=== PATIENT | male | born 1980 | race Two or more races ===

== ENCOUNTER 2018-06-11 11:07 | Inpatient (IN) | payer MEDICAID, OTHER ==
[~2018-06-11] VITALS: Ht 175.3 cm; Wt 87.3 kg
[2018-06-11 11:51] LABS: Basophils # (auto) 0.1 uL; Basophils % (auto) 0.9 % (0.0-2.0); Eosinophils # (auto) 0.3 uL; Eosinophils % (auto) 3.8 % (0.0-7.0); Hemoglobin 15.1 g/dL (13.5-17.5); Lymphocytes # (auto) 2.6 uL; Lymphocytes % (auto) 34.6 % (10.0-50.0); Mean Corpuscular Hemoglobin 28.5 pg (28.0-32.0); Mean Corpuscular Hgb Conc. 32.8 g/dL (32.0-36.0); Mean Corpuscular Volume 86.9 fL (80.0-100.0); Monocytes # (auto) 0.5 uL; Monocytes % (auto) 6.6 % (0.0-12.0); Neutrophils # (auto) 4.1 uL; Neutrophils % (auto) 54.1 % (37.0-80.0); Nucleated Red Blood Cells % 0.2 %; Platelet Count (auto) 238 10^3/uL (140-450); Red Cell Distribution Width 14.6 % (11.8-14.3); White Blood Cell 7.7 10^3/uL (4.4-10.8)
[2018-06-11 12:59] LABS: Potassium 3.9 mmol/L (3.5-5.1)
[2018-06-11 13:22] LABS: Albumin 3.4 g/dL (3.4-5.0); BUN/Creatinine Ratio 14.9; Bilirubin, Total 0.3 mg/dL (0.2-1.0); Total Protein 6.9 g/dL (6.4-8.2)
[2018-06-11] MEDS ORDERED: MORPHINE SULFATE 4 MG/ML SYR/VIAL IV ONE (13:30)
[2018-06-11] MEDS ORDERED: metroNIDAZOLE 500MG/100ML 100 ML IV ONE (13:30)
[2018-06-11] MEDS ORDERED: ONDANSETRON HCL 4 MG/2 ML VIAL IV ONE (13:30)
[2018-06-11] MEDS ORDERED: PIPERACILLIN-TAZOB 3.375GM 100 ML IV ONE (13:30)
[2018-06-11 16:07] LABS: Urine Bacteria NONE SEEN /hpf (None Seen); Urine Blood Negative /uL (Negative); Urine Specific Gravity 1.013 (1.001-1.035); Urine WBC <1 /hpf (0 - 3)
[2018-06-11 16:13] LABS: Alcohol, Urine < 3.0 mg/dL (0-5); Amphetamine Screen, Urine NEGATIVE (NEGATIVE); Barbiturate Scree,Urine NEGATIVE (NEGATIVE); Benzodiazephine Screen, Urine NEGATIVE (NEGATIVE); Cannabinoid Screen, Urine POSITIVE (NEGATIVE); Cocaine Screen, Urine NEGATIVE (NEGATIVE); Opiate Scree,Urine NEGATIVE (NEGATIVE); Phencyclidine Screen, Urine NEGATIVE (NEGATIVE)
[2018-06-11] MEDS: SODIUM CHLORIDE 0.9% 1,000 ML IV SCH (16:42)
[2018-06-11] MEDS ORDERED: traMADol HCL 50 MG TAB PO PRN (16:45)
[2018-06-11] MEDS ORDERED: NITROGLYCERIN 0.4 MG SL TAB SL PRN (16:45)
[2018-06-11] MEDS ORDERED: cefTRIAXone 1GM/50ML D5W 50 ML IV ONE (16:45)
[2018-06-11] MEDS ORDERED: LORazepam 0.5 MG TAB PO PRN (16:45)
[2018-06-11] MEDS ORDERED: PANTOPRAZOLE 40 MG/10 ML VIAL IV ONE (16:45)
[2018-06-11] MEDS ORDERED: PROMETHAZINE HCL 25 MG/ML 1ML IV PRN (16:45)
[2018-06-11] MEDS ORDERED: TEMAZEPAM 15 MG CAP PO PRN (16:45)
[2018-06-11] MEDS ORDERED: MORPHINE SULF INJ 2 MG/ML SYRINGE 1ML IV PRN (16:45)
[2018-06-11] MEDS ORDERED: ACETAMINOPHEN 500 MG TAB PO PRN (16:45)
[2018-06-11 17:06] LABS: CRP High Sensitivity 0.06 mg/dL (< 0.3)
--- NOTE | 2018-06-11 18:37 | NUR ---
Telemetry admit from ER SANDRITA VICKERS admitted to Telemetry unit RM 251A. Patient oriented to YONIS Moura RN, unit, room, bed, and unit policies regarding patient care and visiting hours. Patient now on continuous telemetry monitoring, tele box # 9 and telemetry reading on arrival to unit is Sinus Rhythm, [id number]. Patient is on room air. Patient encouraged to call if they need something. All questions and concerns addressed, patient verbalized understanding. IV Rocephin which was started in the ER continued.
--- NOTE | 2018-06-11 19:10 | NUR ---
Closing Note Patient is resting in bed, call light within reach and family at bedside. Care endorsed to night RN. Also informed night RN regarding Flagyl IV scheduled at 1800 to be given as IV Rocephin is still running at this time.
--- NOTE | 2018-06-11 20:00 | NUR ---
ASSUMED CARE, PT. AWAKE, NO C/O PAIN, NO SOB.
[2018-06-11 21:30] VITALS: BP 120/63
[2018-06-11] MEDS: MORPHINE SULFATE 4 MG/ML SYR/VIAL IV PRN (21:38)
[2018-06-11] MEDS: PANTOPRAZOLE 40 MG/10 ML VIAL IV SCH (21:38)
[2018-06-11] MEDS: metroNIDAZOLE 500MG/100ML 100 ML IV SCH (23:31)
[2018-06-12 01:57] LABS: Hematocrit 44.2 % (41.0-53.0); Hemoglobin 14.8 g/dL (13.5-17.5)
[2018-06-12] MEDS: MORPHINE SULFATE 4 MG/ML SYR/VIAL IV PRN (02:32)
[2018-06-12] MEDS: SODIUM CHLORIDE 0.9% 1,000 ML IV SCH ×3 (02:42→22:42)
[2018-06-12 04:30] VITALS: BP 109/64
[2018-06-12] MEDS: metroNIDAZOLE 500MG/100ML 100 ML IV SCH ×3 (05:31→17:54)
[2018-06-12 06:20] LABS: Hematocrit 45.2 % (41.0-53.0); Hemoglobin 15.2 g/dL (13.5-17.5)
[2018-06-12 06:27] LABS: Albumin 3.3 g/dL (3.4-5.0); BUN/Creatinine Ratio 11.6; Calcium 7.9 mg/dL (8.5-10.1); Potassium 3.8 mmol/L (3.5-5.1)
[2018-06-12 06:30] LABS: Bilirubin, Total 0.4 mg/dL (0.2-1.0); Total Protein 6.7 g/dL (6.4-8.2)
--- NOTE | 2018-06-12 08:00 | NUR ---
ASSESSMENT NOTE PT IS LAERT ORIENTED X4, RESTING IN BED COMFORTABLY, NO DISTRESS NOTED, DENIES ANY ABDOMEN PAIN 0/10, SELF REPOSITION NEEDED, ORIENTED TO CALL LIGHT- WITHIN REACH, PT'S AT BED SIDE
[2018-06-12 09:07] VITALS: BP 109/65
[2018-06-12] MEDS: PANTOPRAZOLE 40 MG/10 ML VIAL IV SCH ×2 (09:22→21:41)
[2018-06-12] MEDS: cefTRIAXone 1GM/50ML D5W 50 ML IV SCH (09:23)
[2018-06-12] MEDS ORDERED: ENOXAPARIN SOD 40 MG/0.4 ML SYRINGE SC SCH (10:00)
[2018-06-12] MEDS ORDERED: PANTOPRAZOLE 40 MG/10 ML VIAL IV SCH (10:00)
[2018-06-12 11:30] VITALS: BP 132/81
[2018-06-12 14:10] LABS: Hematocrit 45.6 % (41.0-53.0)
--- NOTE | 2018-06-12 15:42 | NUR ---
PAGE DR Artie GAR PT WOULD LIKE TO EAT.
--- NOTE | 2018-06-12 15:55 | NUR ---
DR GILLETTE AT BED SIDE FOLLOWING UP ON PT, INFORM PT THAT HE CAN START ON CLEAR LIQUID NOW AND FOR DINNER FULL LIQUID, PT'S ASKED DR GILLETTE IF HER CAN GO HOME TODAY, DR GILLETTE ADVICE HER IT PREFER TO WAIT ONE MORE DAY,BECAUSE THE LAIPASE LEVEL WAS IN 500'S.
--- NOTE | 2018-06-12 16:00 | NUR ---
CLEAR LIQUID PT TOLERATED CLEAR LIQUID WELL, CONTINUE MONITORING.
[2018-06-12 17:10] VITALS: BP 134/86
--- NOTE | 2018-06-12 19:20 | NUR ---
Opening Shift Note Assumed care of patient, awake and alert with at bedside. No S/S of distress/SOB or pain. Instructed on POC and to call for assistance PRN, will continue to monitor for changes Q1hr and PRN.
[2018-06-12 21:30] VITALS: BP 133/72
[2018-06-13] MEDS: metroNIDAZOLE 500MG/100ML 100 ML IV SCH ×3 (00:13→11:42)
[2018-06-13] MEDS: SODIUM CHLORIDE 0.9% 1,000 ML IV SCH (00:14)
[2018-06-13 05:00] VITALS: BP 102/66
[2018-06-13 08:00] VITALS: BP 108/54
--- NOTE | 2018-06-13 08:00 | NUR ---
ASSESSMENT NOTE PT IS ALERT ORIENTED X4, RESTING IN BED COMFORTABLY, NO DISTRESS NOTED, DENIES ANY ABDOMEN PAIN 0/10, SELF REPOSITION NEEDED, ORIENTED TO CALL LIGHT- WITHIN REACH, PT'S AT BED SIDE.
--- NOTE | 2018-06-13 09:00 | NUR ---
BREAKFAST PT TOLERATED DIET WELL
[2018-06-13] MEDS: PANTOPRAZOLE 40 MG/10 ML VIAL IV SCH (09:24)
[2018-06-13] MEDS: cefTRIAXone 1GM/50ML D5W 50 ML IV SCH (09:24)
[2018-06-13 12:00] VITALS: BP 138/76
--- NOTE | 2018-06-13 14:34 | NUR ---
DR HANK ROBERTSON CALLED, PT'S UPDATE GIVEN TO HER, SAID PT CAN GO HOME AND FOLLOW UP OUTPATIENT.
[2018-06-13 16:00] VITALS: BP 131/76
--- NOTE | 2018-06-13 17:20 | NUR ---
DR GILLETTE AT BED SIDE FOLLOWING UP ON PT WITH DISCHARGE HOME INSTRUCTION, PT VERBALIS UNDERSTANDING
--- NOTE | 2018-06-13 18:50 | NUR ---
ALL DISCHARGE INSTRUCTION GIVEN TO PT, PT VERBALIS UNDERSTANDING, PT CONTINUE EATING DINNER, TOLERATED WELL
== END 2018-06-13 18:55 | disposition home or self-care (01) | DRG 241 ==
LOC: ER 11:11 → TELE-EAST 16:42
PROVIDERS: ADMIT Internal Medicine; ATTEND Internal Medicine
DX: K29.80 Duodenitis without bleeding (principal); K85.20 Alcohol induced acute pancreatitis without necrosis or infection; F12.90 Cannabis use, unspecified, uncomplicated; E66.3 Overweight; N20.0 Calculus of kidney; Z82.49 Family history of ischemic heart disease and other diseases of the circulatory system; Z83.3 Family history of diabetes mellitus; Z68.28 Body mass index [BMI] 28.0-28.9, adult
CPT/HCPCS: 36415; 71045; 74176; 80053; 80307; 81001; 82150; 82962; 83605; 83690; 85014; 85018; 85025; 85045; 85652; 86141; 87040; 96365; 96375; C9113; G0378; J0696; J2405; J2543; J3490

== ENCOUNTER 2018-10-07 11:49 | Emergency (ER) | payer MEDICAID ==
[2018-10-07 12:36] LABS: Basophils # (auto) 0.1 uL; Basophils % (auto) 0.9 % (0.0-2.0); Eosinophils # (auto) 0.3 uL; Eosinophils % (auto) 4.4 % (0.0-7.0); Hematocrit 45.2 % (41.0-53.0); Hemoglobin 15.2 g/dL (13.5-17.5); Lymphocytes # (auto) 2.2 uL; Lymphocytes % (auto) 30.6 % (10.0-50.0); Mean Corpuscular Hemoglobin 29.3 pg (28.0-32.0); Mean Corpuscular Hgb Conc. 33.6 g/dL (32.0-36.0); Mean Corpuscular Volume 87.3 fL (80.0-100.0); Monocytes # (auto) 0.4 uL; Monocytes % (auto) 5.8 % (0.0-12.0); Neutrophils # (auto) 4.1 uL; Neutrophils % (auto) 58.3 % (37.0-80.0); Platelet Count (auto) 252 10^3/uL (140-450); Red Blood Cells 5.18 10^6/uL (4.5-5.90); Red Cell Distribution Width 14.2 % (11.8-14.3); White Blood Cell 7.1 10^3/uL (4.4-10.8)
[2018-10-07 12:46] LABS: Alanine Aminotransferase 31 U/L (16-61); Albumin 3.6 g/dL (3.4-5.0); Anion Gap 9 (5-15); Aspartate Aminotransferase 16 U/L (15-37); Blood Urea Nitrogen 13 mg/dL (7-18); Calcium 8.4 mg/dL (8.5-10.1); Carbon Dioxide 25 mmol/L (21-32); Chloride 110 mmol/L (98-107); GFR African American 100 mL/min; GFR Non-African American 83 mL/min; Glucose 117 mg/dL (74-106); Magnesium 2.1 mg/dL (1.6-2.6); Potassium 4.1 mmol/L (3.5-5.1); Sodium 144 mmol/L (136-145)
[2018-10-07 12:51] LABS: Alkaline Phosphatase 61 U/L (45-117); Bilirubin, Total 0.4 mg/dL (0.2-1.0)
[2018-10-07 13:40] VITALS: BP 131/84
== END 2018-10-07 13:42 | disposition home or self-care (01) ==
LOC: ER 11:55
DX: R07.89 Other chest pain (principal); R42 Dizziness and giddiness; F17.210 Nicotine dependence, cigarettes, uncomplicated; F12.90 Cannabis use, unspecified, uncomplicated
CPT/HCPCS: 36415; 80053; 83735; 84484; 85025; 93005